=== PATIENT | female | born 1970 | race Caucasian/White ===

== ENCOUNTER 2018-02-22 17:01 | Emergency (ER) | payer MEDICAID, SELFPAY ==
[2018-02-22 17:02] VITALS: BP 121/60; PULSE 82; RESP 16; TEMP 36.6; O2SAT 99; BMI 22.1
[2018-02-22 17:04] VITALS: PULSE 70; RESP 18; O2SAT 100
--- NOTE | 2018-02-22 17:12 | EKG12_ITS ---
Test Reason : REPEAT Blood Pressure : / mmHG Vent. Rate : 053 BPM Atrial Rate : 053 BPM P-R Int : 124 ms QRS Dur : 096 ms QT Int : 436 ms P-R-T Axes : 060 060 047 degrees QTc Int : 409 ms Sinus bradycardia Otherwise normal ECG Confirmed by JORGE ARCHIBALD, MILDRED ([id number]), social media editor LORENA LOWE ([id number]) on 02/25/2018 1:23:26 PM Referred By: MARY ANN Confirmed By:MILDRED PATEL MD
--- NOTE | 2018-02-22 17:13 | ED.VISSUMM ---
- ER Visit Summary Date of Service: 02/22/18 Chief Complaint: Chest pain History of Present Illness: The patient is a 47 F with intermittent chest pain for the last 9 hours. She describes a pressure heaviness that comes on the left upper chest, lasts just a few seconds, and then resolves. She has intermittently become sweaty and short of breath with this. She has also had some intermittent nausea. 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 She has a strong family history of coronary disease with her father and paternal grandmother both passing away in their 40s from [facility]. Patient states she has never had cardiac workup or evaluation. Physical Examination: Vital signs are unremarkable. Patient sitting upright in bed no acute distress. She is somewhat anxious. Head neck examination is normal. Heart is regular rate and rhythm. Lung sounds are clear with good air movement. She has mild left upper chest wall tenderness that she states somewhat re-creates the pain she feels. Abdomen is soft nontender. Extremity examination reveals no calf tenderness or edema. She has strong distal pulses throughout. Test Results: EKG is sinus at 71 with no sign of acute ischemia. Portal chest x-ray shows hyperinflation and chronic changes. CBC was a white count of 12.0 with 44% neutrophils. Chemistry studies normal. Troponin and d-dimer are both unremarkable. Repeat EKG was obtained reveals sinus bradycardia at 53 bpm with no sign of ischemia. Emergency Department Course and Treatment: She received aspirin here for pain. At this time secondary to her family history I did recommend hospitalization for cycling of enzymes and probable stress test. At this time she is choosing to sign out AMA. I advised her at this time that I cannot rule out cardiac etiology to her symptoms. She understands this. She is requesting a phone number for local family physician so that she can follow-up as an outpatient for stress testing. She was encouraged to return immediately if symptoms worsen in any way or if she changes her mind about admission. Treatment Plan: [] Disposition: Discharge AMA Impression: Chest pain This note was generated with [employer] software. It may contain incorrect words, spelling, and punctuation that were not noted in review of the chart prior to signing ED Disposition - Plan for ED Patient: Chief Complaint: Chest Pain Referrals: NOT,DEFINED [NON-STAFF] -
[2018-02-22 17:20] VITALS: O2SAT 100
--- NOTE | 2018-02-22 17:20 | RAD_ITS ---
STUDY: X-RAY CHEST REASON FOR EXAM: Female, 47 years old. Chest pain and dizziness. TECHNIQUE: Single AP portable view of the chest. COMPARISON: None. FINDINGS: The lungs are clear and expanded. Nipple shadow in the lower left chest. There is no demonstrated pleural abnormality. Normal size heart. Normal mediastinum and gerard. Normal visualized pulmonary arteries. Normal visualized aortic arch and descending thoracic aorta. Normal visualized thoracic spine. Normal visualized ribs, clavicles, and shoulders. There is no demonstrated abnormality of the visualized soft tissue structures of the upper abdomen. RAD/Chest 1 View (Portable) IMPRESSION: Normal x-ray examination of the chest. Electronically Signed: Salomón Blank MD at 18:57 EDT , Service support ,
[2018-02-22 17:30] LABS: Absolute Lymphocyte Count 5.43 X10^3/ul (0.83-4.51); Absolute Neutrophil Count 5.3 X10^3/uL (2.0-7.7); Basophil# 0.06 X10^3/uL; Basophil% 0.5 % (0-1); Eosinophil# 0.27 X10^3/uL; Eosinophils% 2.3 % (0-5); Hematocrit 41.6 % (37-47); Hemoglobin 14.3 g/dl (12.0-15.0); Lymphocyte # 5.43 X10^3/ul (4.0); Lymphocyte % 45.3 % (19-41); Mean Corp Hgb Conc 34.4 g/gl (32-36); Mean Corpuscular Hgb 30.8 pg (27.0-32.0); Mean Corpuscular Volume 89.7 fL (81-99); Monocyte# 0.87 X10^3/uL; Monocyte% 7.3 % (0-10); Neutrophil # 5.34 X10^3/uL (2.7-7.7); Neutrophil % 44.5 % (47-70); Platelet Count 309 K/mm3 (150-450); RBC Distribution Width CV 13.5 % (11.6-14.6); RBC Distribution Width SD 43.7 fl (35.1-43.9); Red Blood Count 4.64 M/mm3 (4.2-5.4)
[2018-02-22 17:31] LABS: Differential Indicated SCAN CRITERIA MET; POSITIVE COUNT NO; POSITIVE DIFFERENTIAL YES; POSITIVE MORPHOLOGY NO
[2018-02-22] MEDS: 0.9% Normal Saline 1,000 ML 150 ML IV (17:31)
[2018-02-22] MEDS: Aspirin 81 MG TAB.CHEW 324 MG PO (17:31)
--- NOTE | 2018-02-22 17:40 | EKG12_ITS ---
Test Reason : CHEST PAIN Blood Pressure : / mmHG Vent. Rate : 071 BPM Atrial Rate : 071 BPM P-R Int : 122 ms QRS Dur : 092 ms QT Int : 386 ms P-R-T Axes : 060 067 052 degrees QTc Int : 419 ms Normal sinus rhythm Normal ECG Confirmed by JORGE ARCHIBALD, MILDRED ([id number]), managing editor LORENA LOWE ([id number]) on 02/25/2018 1:23:37 PM Referred By: Confirmed By:MILDRED PATEL MD
[2018-02-22 17:42] LABS: Anion Gap 7 (5-15); BUN 14 mg/dL (7-18); BUN/Creat Ratio 20.2 RATIO (10-20); Calcium,Total 8.4 mg/dL (8.5-10.1); Chloride 106 mmol/L (98-107); Creatinine, Serum 0.69 mg/dL (0.55-1.02); EST Glomerular Filtration Rate 96 mL/min (>60); Est Glom Filt Rate - Afr Amer 116 mL/min (>60); Estimated Creatinine Clearance 79.72 ml/min; Glucose 97 mg/dL (74-106); Potassium 3.7 mmol/L (3.5-5.1); Sodium Level 140 mmol/L (136-145)
[2018-02-22 17:46] LABS: D-Dimer Quantitative (DVT/PE) 0.27 FEU/ug/m (0.27-0.49)
[2018-02-22 18:05] VITALS: BP 122/52; PULSE 61; RESP 13; O2SAT 100
--- NOTE | 2018-02-22 18:24 | ED.DEP ---
ED Disposition - Plan for ED Patient: Disposition: Home or Assisted Living Chief Complaint: Chest Pain Instructions: ED Chest Pain Angina Stable Referrals: Mali Monreal MD [STAFF PHYSICIAN] - As soon as possible
[2018-02-22 18:27] LABS: Differential Comment SCANNED
[2018-02-22 18:52] VITALS: BP 116/60; PULSE 57; RESP 16; O2SAT 100
--- NOTE | 2018-02-22 18:53 | ED.RN ---
PT EDUCATED ON DISCHARGE INSTRUCTIONS AND LEAVING WITHOUT MEDICAL ADVICE. PT SIGNS FORMS AND VERBALIZES UNDERSTANDING OF PAPERWORK. PT ENCOURAGED TO RETURN TO ED IF ANYTHING IN CONDITION CHANGES. PT DENIES ANY FURTHER QUESTIONS. PT AMBULATORY HOME BY SELF. IV D/C AND COVERED WITH 2X2 GAUZE DRESSING.
== END 2018-02-22 18:54 | disposition home or self-care (01) ==
PROVIDERS: Emergency Provider Emergency Medicine
DX: R07.9 Chest pain, unspecified (principal); Z82.49 Family history of ischemic heart disease and other diseases of the circulatory system
CPT/HCPCS: 71045; 80048; 84484; 85025; 85379; 93005; 96360; 99285; J7030; A4216

== ENCOUNTER 2019-04-15 18:46 | Emergency (ER) | payer MEDICAID, SELFPAY ==
[2019-04-15 18:47] VITALS: BP 134/82; PULSE 78; RESP 16; TEMP 36.3; O2SAT 95; BMI 19.5
--- NOTE | 2019-04-15 19:49 | CT_ITS ---
STUDY: CT ABDOMEN AND PELVIS WITH CONTRAST REASON FOR EXAM: Female, 48 years old. Umbilical pain intermittent x2 weeks. RADIATION DOSAGE (If Supplied By Facility): CTDIvol = ( 15.63 ) mGy, DLP = ( 366.42 ) mGycm TECHNIQUE: Transaxial images were obtained from the dome of the diaphragm to the symphysis pubis without oral contrast. 100ml IV/Oral Isovue 300 was administered. Sagittal and coronal images were reconstructed. Individualized dose optimization techniques were used for this CT. COMPARISON: None. FINDINGS: The visualized lung bases are unremarkable. The visualized portions of the heart are within normal limits. Normal liver. Normal gallbladder and extrahepatic biliary system. Normal spleen. Normal pancreas. Normal bilateral adrenal glands. There is a nonobstructing 3.2 mm right renal calculus. Normal left kidney. Normal visualized stomach. Normal small intestine. There are scattered diverticula throughout the descending and sigmoid colon. The appendix is visualized and appears normal. Normal abdominal aorta. Normal inferior vena cava. Normal retroperitoneum. The urinary bladder is fluid-filled and distended. Normal abdominal wall. Normal osseous structures. CT/Abdomen/Pelvis WITH Contrast IMPRESSION: Colonic diverticulosis without evidence of diverticulitis. Nonobstructing 3.2 mm right renal calculus. Fluid-filled distended urinary bladder. Electronically Signed: Nancy Huerta MD at 22:27 EDT Tel , Service support ,
[2019-04-15] MEDS: 0.9% Normal Saline 1,000 ML 125 ML IV (20:02)
[2019-04-15 20:12] LABS: Absolute Lymphocyte Count 4.26 X10^3/ul (0.83-4.51); Basophil# 0.05 X10^3/uL; Basophil% 0.4 % (0-1); Eosinophil# 0.18 X10^3/uL; Eosinophils% 1.5 % (0-5); Hematocrit 41.8 % (37-47); Hemoglobin 14.6 g/dl (12.0-15.0); Lymphocyte # 4.26 X10^3/ul (4.0); Lymphocyte % 34.7 % (19-41); Mean Corp Hgb Conc 34.9 g/gl (32-36); Mean Corpuscular Hgb 29.6 pg (27.0-32.0); Mean Corpuscular Volume 84.6 fL (81-99); Mean Platelet Vol. 10.3 fl (6.2-12.0); Monocyte% 6.5 % (0-10); Neutrophil # 6.97 X10^3/uL (2.7-7.7); Neutrophil % 56.7 % (47-70); Platelet Count 292 K/mm3 (150-450); RBC Distribution Width CV 13.2 % (11.6-14.6); RBC Distribution Width SD 40.4 fl (35.1-43.9); Red Blood Count 4.94 M/mm3 (4.2-5.4); White Blood Count 12.3 K/mm3 (4.4-11.0)
[2019-04-15 20:13] LABS: POSITIVE COUNT NO; POSITIVE DIFFERENTIAL NO; POSITIVE MORPHOLOGY NO
[2019-04-15 20:25] LABS: Internal QC Validated? YES +Cl - CLEAR BKGD; Pregnancy, Serum, hCG Quali. NEGATIVE Negative
[2019-04-15 20:28] LABS: Anion Gap 5 (5-15); BUN 18 mg/dL (7-18); BUN/Creat Ratio 31.4 RATIO (10-20); Calcium,Total 8.5 mg/dL (8.5-10.1); Chloride 111 mmol/L (98-107); Creatinine, Serum 0.57 mg/dL (0.55-1.02); EST Glomerular Filtration Rate 119 mL/min (>60); Est Glom Filt Rate - Afr Amer 144 mL/min (>60); Estimated Creatinine Clearance 92.61 ml/min; Glucose 91 mg/dL (74-106); Potassium 3.6 mmol/L (3.5-5.1); Sodium Level 143 mmol/L (136-145)
[2019-04-15 22:43] VITALS: BP 129/86; PULSE 54; RESP 14; O2SAT 98
[2019-04-15 22:44] LABS: Lactic Acid 0.5 mmol/L (0.4-2.0)
--- NOTE | 2019-04-15 23:13 | ED.DCSUM_ITS ---
- ER Visit Summary Date of Service: 04/15/19 Chief Complaint: [Abdominal swelling] History of Present Illness: The patient is a 48 F [presents the emergency department complaint of a hernia. Patient states that she developed a swelling to the left lower abdomen just lateral to the umbilicus about 5 days ago. Patient states that she has pain over it but became more severe today and rates it about a 7 out of 10. Patient states that she thinks that increased in size today. Patient had more pain to the area when she twisted today. She denies any fever or vomiting. Denies any blood in her stool or black tarry stool.] Physical Examination: [HEENT-PERRLA, EOMI. Cranial nerves II through XII grossly intact. TMs clear. Mucous membranes moist. No adenopathy. Cardiovascular-regular rate and rhythm without murmur or ectopy Lungs-clear to auscultation, chest wall stable without crepitus or subcu emphysema Abdomen-normoactive bowel sounds, soft. Patient has a soft tissue swelling just lateral to the umbilicus it seems to be freely movable within the subcutaneous tissues. The area is tender to palpation. It is not firm or erythematous. There is no cellulitis. Extremities-intact ?4, normal range of motion, normal pulses, atraumatic] Test Results: [CBC with additional count of 12.3, hemoglobin 14.6, hematocrit 42, placed 242. Chemistries unremarkable. hCG was negative. CT scan of the abdomen pelvis showed nothing acute. There was just left of the umbilicus hypodense area but the radiologist suspects may be a lipoma based on the Hounsfield units.] There was no evidence for hernia. Emergency Department Course and Treatment: [Patient was medicated with Dilaudid and Zofran for pain. Patient had good pain relief with that.] Treatment Plan: [Patient does not anything for pain for home. She will be given a referral to general surgeon on-call.] Disposition: [Discharged home in stable condition.] Impression: [Abdominal wall mass-suspect lipoma] This note was generated with [employer] dictation software. It may contain incorrect words, spelling, and punctuation that were not noted in review of the chart prior to signing ED Disposition - Plan for ED Patient: Referrals: Care Physician,No Primary [Primary Care Provider] -
--- NOTE | 2019-04-15 23:14 | ED.DEP ---
ED Disposition - Plan for ED Patient: Instructions: ED Lipoma Referrals: Care Physician,No Primary [Primary Care Provider] - Jay Bassett MD [STAFF PHYSICIAN] - 3-5 Days
[2019-04-15 23:43] VITALS: BP 132/68; PULSE 60; RESP 16; O2SAT 100
== END 2019-04-15 23:44 | disposition home or self-care (01) ==
PROVIDERS: Emergency Provider Emergency Medicine
DX: R19.04 Left lower quadrant abdominal swelling, mass and lump (principal); Z72.0 Tobacco use
CPT/HCPCS: 36415; 74177; 80048; 83605; 84703; 85025; 96360; 96361; 99283; J7030; Q9967; A4216; J2405

== ENCOUNTER 2019-05-08 07:20 | Day surgery (SDC) | payer MEDICAID, SELFPAY ==
--- NOTE | 2019-04-21 05:17 | HP_ITS ---
Intake Vital Signs 04/21/19 Body Mass Index (BMI) 19.5 04/21/19 Height 5 ft 2 in 04/21/19 Weight: 110 lb 04/21/19 Body Mass Index (BMI) 20.1 04/21/19 Blood Pressure 124/69 H 04/21/19 Blood Pressure Location Rt brachial 04/21/19 Blood Pressure Position Sitting 04/21/19 Respiratory Rate 18 04/21/19 Pulse Rate 58 L 04/21/19 Pulse Source Monitor 04/21/19 Temperature 98.2 F 04/21/19 Temperature Source Oral 04/21/19 Pulse Ox 97 04/21/19 Oxygen Delivery Method room air Intake Visit Reasons: Abdominal Mass CT ER [facility] 04/15 Head Animal Trainer Required: No Is patient in pain?: No Allergies morphine Allergy (Verified 04/21/19 14:43) Anaphylaxis Medications NK 02/22/18 [History Confirmed 04/21/19] [facility] Medical History Abdominal wall mass (Acute) Abdominal lipoma (Acute) Abdominal pain (Acute) Family History Mother Arthritis Cancer skin cancer Grandfather Heart disease Hypertension Grandmother Heart disease Hypertension Father Heart disease Hypertension Social History Smoking Status: Current every day smoker alcohol intake: current substance use type: does not use HPI HPI HPI: AVELINA NICK, is a 48 F who presents to the office today for HPI HPI Surgical H&P: Yes HPI: AVELINA NICK, is a 48 F who presents to the office today for surgical consultation regarding abdominal wall mass. The patient states that approximately a week and a half ago she was lifting and noted a sudden tearing feeling to the left of her umbilicus. She then suddenly noticed abdominal swelling. She states that it seemed to get better but then a couple days later again did some lifting causing it to tear and feel painful. She then went to the [facility] emergency room on April 15, 2019. There was concerns about a hernia. A CT scan was obtained. There was a well- circumscribed fat-containing round left periumbilical focus measuring 3.2 x 2 x 3.2 cm. Suspected to be an underlying lipoma the abdominal wall was felt to be intact. Colonic diverticulosis was identified. No other acute findings. Her white count was 12.3 with a hemoglobin of 14.6 hematocrit 41.8 platelet count 292,000. BUN 18 and creatinine 0.57. The patient absolutely states that this was not present over any period of time but suddenly it acutely appeared within the past week and a half. She denies any surgery or incisions at that site. She has always been light weight current BMI percentiles 19.5%. She has been a lifelong cigarette smoker and she continues to smoke at least a pack per day. She denies any bright red blood per rectum or melena. The palpable mass is not currently focally tender. ROS General General: Yes fatigue; no weight change, appetite, colon cancer, breast cancer or weakness HEENT HEENT: No difficulty swallowing, eye injury, eye surgery, swollen glands or hoarseness Endo Endocrine: No thyroid disease, diabetes mellitus, thyroid cancer, Hair loss, heat intolerance or cold intolerance Skin Skin: No rash or changing moles Breast Breast: No left breast lump, right breast lump, nipple discharge, breast pain, abnormal mammogram, abnormal US or breast enlargement Musc Musculoskeletal: No back problems, arthritis, rheumatoid arthritis, gout or joint pain Cardio Cardiovascular: No murmur, pacemaker, heart disease, atrial fibrillation, high blood pressure, heart attack, heart stent, palpitations, shortness of breat with exertion or chest pain Psych Psychiatric: Yes depression; no anxiety or hearing voices Resp Respiratory: No shortness of breath, No sleep apnea, No cough, No COPD, No asthma, No emphysema, No wheezing Gastro Gastrointestinal: Yes abdominal pain, Yes nausea or vomiting, Yes diarrhea, No constipation, No blood in stool, No acid reflux, No hemorrhoids, No ulcers, No gallbladder problem, No black,tarry stools Ancelmo Hematologic: No blood thinners, No blood disorders, No bleeding, No anemia, No blood clots Neuro Neurologic: No system reviewed and no additional complaints, except as docu, No as per HPI, No abnormal walking, No abnormal hearing, No abnormal movements, No abnormal speech, No behavioral changes, No burning sensations, No confusion, No seizure-like activity, No unsteadiness, No dizziness, No localized weakness, No frequent falls, No headache(s), No lack of coordination, No loss of vision, No memory loss, No numbness, No other visual disturbances, No radiating pain, No restless legs, No sensory deficit, No fainting, No tingling, No tremor(s), No weakness, No other Exam Const General: cooperative, comfortable, no acute distress Nutritional Appearance: underweight Orientation: alert, awake, oriented x3 HENMT Teeth and gingiva: poor dentition Eyes General: appearance normal, both eyes and all related structures Neck Neck: normal visual inspection Chest Breast Palpation: No nipple discharge Other: Increased anterior posterior diameter Resp Effort & Inspection: normal respiratory effort Auscultation: clear to auscultation bilaterally Cardio Rate: regular rate Rhythm: regular rhythm Heart Sounds: no murmurs GI Other: Soft, scaphoid, soft tissue mass just to the left of the umbilicus approximately 3.5 cm in diameter. Rubbery. Patient examined both upright and supine. I cannot distinctly palpate a fascial defect. The area is partially mobile. Skin Lesions: no lesions Neuro Cognition: normal cognition Extrem General: no calf tenderness bilaterally Psych Affect: normal affect Assessment & Plan Problems 1. Abdominal wall mass R22.2 Plan 48-year-old female with by history acute onset of an abdominal wall mass to the left of the umbilicus. She complains of lifting bending straining and a ripping sensation. Her history would coincide with a ventral/umbilical hernia. CT imaging however suggest more likely a subcutaneous lipoma. On clinical examination I cannot differentiate the two. The patient was symptomatic enough to obtain emergency room evaluation. I proposed for her in the operating room through a small incision directly over the item either a excision of the subtenons lipoma or excision of the soft tissue mass within umbilical/ventral hernia repair likely with the addition of mesh. In detail I have discussed the technique, benefit, risks, alternatives. I have vigorously encouraged the patient to stop her tobacco to allow for the procedure to proceed. She has had an opportunity to ask and have questions answered. She desires to proceed as noted. We will schedule at her discretion. CC: No primary care physician Jay Bassett M.D., F.A.C.S. Coding Level of Care Code Off vis,new,level 3 Diagnoses Abdominal wall mass R22.2 04/21/19 1717 <Electronically signed by Jay Bassett MD> Date Jay Bassett MD I have re-examined the patient. There are no clinical changes since date of exam.
[2019-04-21 14:45] VITALS: BMI 19.5
--- NOTE | 2019-05-05 10:44 | EKG12_ITS ---
Test Reason : PREOP Blood Pressure : / mmHG Vent. Rate : 050 BPM Atrial Rate : 050 BPM P-R Int : 116 ms QRS Dur : 092 ms QT Int : 422 ms P-R-T Axes : 062 081 072 degrees QTc Int : 384 ms Sinus bradycardia Otherwise normal ECG Confirmed by CORINNA ARCHIBALD, GINNY ([id number]), senior editor LORENA LOWE ([id number]) on 05/08/2019 6:22:03 AM Referred By: Jay Bassett Confirmed By:GINNY WEINSTEIN MD
[2019-05-05 10:52] LABS: Hematocrit 41.6 % (37-47); Hemoglobin 14.2 g/dl (12.0-15.0); Mean Corp Hgb Conc 34.1 g/gl (32-36); Mean Corpuscular Hgb 30.1 pg (27.0-32.0); Mean Corpuscular Volume 88.1 fL (81-99); Mean Platelet Vol. 10.2 fl (6.2-12.0); Platelet Count 299 K/mm3 (150-450); RBC Distribution Width CV 13.6 % (11.6-14.6); RBC Distribution Width SD 44.4 fl (35.1-43.9); Red Blood Count 4.72 M/mm3 (4.2-5.4); White Blood Count 9.3 K/mm3 (4.4-11.0)
[2019-05-05 10:53] LABS: Scan Indicated on CBC? Y/N NO
[2019-05-05 11:24] LABS: Anion Gap 6 (5-15); BUN 17 mg/dL (7-18); BUN/Creat Ratio 23.4 RATIO (10-20); Calcium,Total 8.9 mg/dL (8.5-10.1); Chloride 108 mmol/L (98-107); Creatinine, Serum 0.73 mg/dL (0.55-1.02); EST Glomerular Filtration Rate 90 mL/min (>60); Est Glom Filt Rate - Afr Amer 109 mL/min (>60); Glucose 104 mg/dL (74-106); Potassium 4.3 mmol/L (3.5-5.1); Sodium Level 141 mmol/L (136-145)
[2019-05-08 07:40] VITALS: BP 121/67; PULSE 52; RESP 100; TEMP 36.6; BMI 19.8
[2019-05-08] MEDS: Bupivacaine Mpf 0.5% 30 ML VIAL (08:38)
[2019-05-08] MEDS: Cefazolin 2 GM in 0.9% Normal Saline 100 ML IV (08:38)
--- NOTE | 2019-05-08 08:44 | DCINST_ITS ---
Discharge Diet: Light diet - advance as tolerated - if you have questions about your diet instructions, please talk to you doctor. Discharge Activity: May Not Drive - for 3-5 days or while taking narcotic pain medicine. May shower in (days): 1 Lifting Restrictions: 10 pounds Call your doctor if your incision/area has: Continuous Slow Oozing, Sudden Increased Bleeding, Increased Pain/ Swelling, Increased Redness, Foul Smelling Discharge Call your doctor if you observe: Fever of 101 or Higher Suture Line Care: Avoid Pulling/Pushing, Avoid Pinching/Bending Additional Dressing/Incision Instructions:: Change or remove dressing in 4 days. Leave steri-strips in place for 1 week. Allergies/Adverse Reactions: Allergies morphine Allergy (Verified 05/01/19 13:51) Anaphylaxis Medications to take at Discharge NK 02/22/18 Primary Care Physician: Care Physician,No Primary [Primary Care Provider] - Test Results: Test results from this visit will be discussed in further detail at your follow- up appointment, if applicable. Please Follow Up With: Jay Bassett MD - [phone] When: Call to make an appointment to be seen in about 10 days.
--- NOTE | 2019-05-08 09:00 | LIP_PTH ---
PATIENT: AVELINA NICK LOC: [facility] – [place] U#:[id number] AGE/SX: 48/F ROOM: RE05/08/[address]: Dr. Jay Bassett MD : 1970 BED: DIS: 05/08/2019 SPEC #: [id number] RECD: 05/08/19 10:02 STATUS: YU KAMALA #: [id number] GERARD: 05/08/19 09:[address]: Jay Bassett DEPT: SURGICAL PATHOLOGY RECD BY: Abbie Abraham ENTERED: 05/08/19 14:05 SP TYPE: LIPOMA OTHR DR: No Primary Care Phys Tissues: Soft tissues, NOS Procedures: Surgery Specimen Level III HEADER OPERATION: Excision umbilical lipoma PRE-OP DIAGNOSIS: Abdominal mass, umbilical lipoma TISSUE SUBMITTED: Umbilical lipoma MICROSCOPIC DIAGNOSIS Abdominal mass, excision: Mature adipose tissue consistent with umbilical lipoma. AM:yaw 05/11/19 MICROSCOPIC DESCRIPTION Slides are reviewed. GROSS DESCRIPTION Received in fixative is one container labeled with the patient's name and designated umbilical lipoma. The specimen consists of a piece of yellow adipose tissue with portion of attached omentum measuring 5 x 6 x 2 cm. The portion of attached omentum measures 3 x 1.5 x 1 cm. Also present in the container is a detached piece of tissue consistent with omentum measuring 3.5 x 2 x 0.5 cm. Sections reveal yellow adipose cut surfaces without area of hemorrhage, necrosis or cystic degeneration. Sections of the omentum do not reveal any mass lesion. Print Production Manager sections are submitted in two cassettes. / HARSHAL:yaw 05/08/19 TC:1 CPT: 35906
--- NOTE | 2019-05-08 09:10 | PCM.OPRPT ---
Problem List (1) Abdominal wall mass Status: Acute Report of Operation Date of Procedure: 05/08/19 Pre-Operative Diagnosis: Left periumbilical abdominal wall mass Post-Operative Diagnosis: Left periumbilical subcutaneous lipoma Surgery/Procedure Performed:: Excision left periumbilical subcutaneous lipoma Description of Surgical Findings:: Timeout informed consent was obtained. 48-year-old female was taken to the operating room and placed supine on the table. The abdomen was sterilely prepped and draped Ancef 2 g given intravenously preoperatively. A transverse incision was made just to the left of the umbilicus sharp dissection carried down through the substance tissue of fibrofatty mass was immediately encountered this was circumferentially dissected free with sharp scissor dissection electrocautery dissection. Only until I got circumferentially around the area it could be determined that it was actually a subcutaneous lipoma and not a ventral hernia. There was absolutely no fascial defect. The lesion was completely excised. Measured greater than 3 cm approximate 5 cm. Hemostasis was intact. The subdermal tissues were approximated interrupted 4-0 Monocryl. Surgical glue was applied. Telfa and OpSite dressing applied. Sponge and instrument and needle counts were reported the surgeon be correct. Blood loss minimal. She tolerated the procedure well was taken to the recovery area in satisfactory condition. Specimen lipoma. Drains none. Blood loss minimal. Jay Bassett M.D., F.A c s Type of Anesthesia:: General Anesthesiologist: Davy Reardon
[2019-05-08 09:25] VITALS: BP 121/67; BP 124/54; PULSE 66; RESP 16; TEMP 35.8; O2SAT 97
[2019-05-08 09:30] VITALS: BP 110/77; BP 121/67; PULSE 64; RESP 16; O2SAT 96
[2019-05-08 09:45] VITALS: BP 121/67; PULSE 62; RESP 16; TEMP 36.1; O2SAT 98
[2019-05-08 10:43] VITALS: BP 121/67; BP 135/46; PULSE 51; RESP 16; TEMP 36.3; O2SAT 100
== END 2019-05-08 10:49 | disposition home or self-care (01) ==
LOC: SDC 07:21 → AC 07:22
PROVIDERS: Referring Provider Surgery; Visit Provider Surgery
PROC: (CPT 22903; principal; 2019-05-08 08:45)
DX: D17.1 Benign lipomatous neoplasm of skin and subcutaneous tissue of trunk (principal); F17.210 Nicotine dependence, cigarettes, uncomplicated
CPT/HCPCS: 22903; 36415; 80048; 85027; 88304; 93005; J7120; J2405